=== PATIENT | female | born 1980 | race Caucasian/White ===

== ENCOUNTER 2018-01-04 21:20 | Observation (INO) | payer MEDICAID ==
[~2018-01-04] VITALS: Ht 170.2 cm; Wt 96.2 kg
[~2018-01-04 21:20] MED LIST: ACET-685 PO; CIPR500T86 PO; FLAV100T PO; TAMS0.4C2 PO; TRAM50TA PO
[2018-01-04 21:39] VITALS: BP 151/97
[2018-01-04] MEDS ORDERED: TORADOL IM STA (21:50)
--- NOTE | 2018-01-04 21:50 | ER.PDOC ---
General Chief Complaint: General Complaint Stated Complaint: POSS KIDNEY STONE Time seen by MD: 21:46 Source: patient, family Exam Limitations: no limitations History of Present Illness Initial Comments 37 year old white female with kidney stone comes in with left sided back pain. No fever, no chills. sudden in onset today two hours prior to consult. No nausea , no vomiting Timing/Duration: just prior to arrival Severity/Quality: moderate Location of Pain: flank pain (left) Sexual [place] History: less than 2 months ago, single partner Associated Symptoms: denies symptoms Prior symptoms/Treatment: Similar symptoms previous (history of kidney stone) Allergies: Coded Allergies: No Known Allergies (Unverified , 03/03/16) Past Medical History Medical History: hypertension, other (kidney stone) Surgical History: , tonsillectomy, tubal Social History Smoking: less than 1 pack/day Alcohol Use: none Drug Use: none Review of Systems Constitutional: no symptoms reported, see HPI EENTM: no symptoms reported Respiratory: no symptoms reported Cardiovascular: no symptoms reported Gastrointestinal: no symptoms reported Genitourinary: no symptoms reported Musculoskeletal: no symptoms reported Skin: no symptoms reported Psychiatric/Neurological: seizure Endocrine: no symptoms reported Hematologic/Lymphatic: no symptoms reported Physical Exam General Appearance: No Apparent Distress, WD/WN EENT: eyes nml inspection, nml ENT inspection, pharynx nml Neck: nml inspection, non-tender Cardiovascular/Respiratory: Regular Rate, Rhythm, No M/R/G, Normal Peripheral Pulses, No JVD, Normal Breath Sounds, No Respiratory Distress Abdomen: Normal Bowel Sounds, Non Tender, Soft, No Organomegaly, No Pulsatile Mass Back: nml inspection Pelvic: External Exam Normal Extremities: Normal Range of Motion, Non-Tender, Normal Inspection, No Pedal Edema, No Calf Tenderness, Normal Capillary Refill Neurologic/Psychiatric: field service tech II-XII NML as Tested, No Motor/Sensory Deficits, Alert, Normal Mood/Affect, Oriented x 3 Skin: Normal Color, Warm/Dry Lymphatic: No Adenopathy Results/Orders Results/Orders Laboratory Tests Test 01/04/18 00:00 01/04/18 21:57 Urine Collection Type UNKNOWN Urine Color YELLOW (YELLOW) Urine Appearance CLOUDY (CLEAR) Urine Bilirubin NEGATIVE MG/DL (NEGATIVE) Urine Ketones NEGATIVE (NEGATIVE) Urine Specific [place] 1.015 (1.005-1.035) Urine pH 6 (5.0-6.0) Urine Protein 15 mg/dL (NEGATIVE) Urine Urobilinogen NORMAL (NEGATIVE) Urine Nitrate NEGATIVE (NEGATIVE) Urine Leukocyte Esterase NEGATIVE (NEGATIVE) Urine Blood 150 3+ (NEGATIVE) Urine RBC 10-25 RBC/HPF (NONE SEEN) Urine WBC 0-2 WBC/HPF (0-2) Urine Squamous Epithelial Cells MODERATE #/HPF (FEW) Urine Bacteria MANY (NONE SEEN) Urine Hyaline Casts 0-1 (NONE SEEN) Urine Other 3+ MUCUS #/HPF Urine Glucose NORMAL (NEGATIVE) White Blood Count 9.7 10^3/uL (4.5-11.0) Red Blood Count 4.80 10^6/uL (4.00-5.20) Hemoglobin 13.7 g/dL (12.0-15.0) Hematocrit 41.1 % (36.0-46.0) Mean Corpuscular Volume 85.6 fL (78-100) Mean Corpuscular Hemoglobin 28.5 pg (26-34) Mean Corpuscular Hemoglobin Concent 33.3 g/dL (33-37) Red Cell Distribution Width 15.0 % (11.5-14.5) Platelet Count 258 10^3/uL (150-400) Mean Platelet Volume 9.2 fL (7.8-11.0) Neutrophils (%) (Auto) 53.9 % (41.0-85.0) Lymphocytes (%) (Auto) 33.1 % (24.0-44.0) Monocytes (%) (Auto) 9.9 % (5.0-12.0) Neutrophils # (Auto) 5.2 10^3/uL (1.8-7.7) Lymphocytes # (Auto) 3.2 10^3/uL (1.0-4.8) Monocytes # (Auto) 1.0 10^3/uL (0.3-0.8) Absolute Immature Granulocyte (auto 0.03 10^3 u/L (0-2) Eosinophils % 2.5 % (0.0-5.0) Basophils % 0.3 % (0.0-0.2) Basophils # 0.0 10^3/uL (0.0-0.1) Eosinophil Count 0.2 10^3/uL (0.0-0.2) Prothrombin Time 9.3 SEC (9.8-11.9) Prothrombin Time INR (Non-Therap) 0.9 Activated Partial Thromboplast Time 26.0 SEC (24.67-30.72) Sodium Level 137 mmol/L (132-145) Potassium Level 3.7 mmol/L (3.6-5.2) Chloride Level 104.0 mmol/L (96-109) Carbon Dioxide Level 23.7 mmol/L (20.0-32) Anion Gap 13.0 Blood Urea Nitrogen 13 mg/dL (7-18) Creatinine 1.05 mg/dL (0.59-1.40) Estimated GFR () 71.4 (>/=60) BUN/Creatinine Ratio 12.0 Glucose Level 101 mg/dL (70-110) Calcium Level 8.9 mg/dL (8.4-10.5) Total Bilirubin 0.1 mg/dL (0.2-1.0) Aspartate Amino Transf (AST/SGOT) 111 U/L (0-35) Alanine Aminotransferase (ALT/SGPT) 115 U/L (12-78) Alkaline Phosphatase 326 U/L (50-136) Total Protein 7.1 g/dL (6.4-8.2) Albumin 3.1 g/dL (3.4-5.0) Globulin 4.0 Percent Immature Gran (Cell Imm) 0.30 % (0.00-0.50) Administered Medications Medications (Trade) Dose Ordered Sig/Dank Route PRN Reason Start Time Stop Time Status Last Admin Dose Admin Ketorolac Tromethamine (Toradol) 30 mg STAT STAT IM 01/04/18 21:50 01/04/18 21:53 DC 01/04/18 21:58 Progress Progress Pain under good control Departure Time of Disposition: 23:14 Disposition: 09 ADMITTED INPATIENT Impression: Primary Impression: Calculus of ureter Condition: Stable Referrals: HONG SOTO DO (PCP) PRIMARY CARE PROVIDER Additional Instructions: admit to Dr. Carter Comments admit Duration or Time Spent with Pa: ASHLEIGH HILLMAN MD January 04, 2018 21:50
[2018-01-04] MEDS ORDERED: TORADOL ONE (21:55)
[2018-01-04 22:02] LABS: BASOPHIL % 0.3 % (0.0-0.2); EOSINOPHIL # 0.2 10^3/uL (0.0-0.2); EOSINOPHIL % 2.5 % (0.0-5.0); HEMOGLOBIN 13.7 g/dL (12.0-15.0); LYMPHOCYTES # 3.2 10^3/uL (1.0-4.8); LYMPHOCYTES % 33.1 % (24.0-44.0); MEAN CELL HGB 28.5 pg (26-34); MEAN CELL HGB CONCENTRATION 33.3 g/dL (33-37); MEAN CORP VOLUME 85.6 fL (78-100); MEAN PLATELET VOLUME 9.2 fL (7.8-11.0); MONOCYTES % 9.9 % (5.0-12.0); NEUTROPHIL # 5.2 10^3/uL (1.8-7.7); NEUTROPHILS % 53.9 % (41.0-85.0); WHITE BLOOD CELL 9.7 10^3/uL (4.5-11.0)
[2018-01-04 22:18] LABS: CALCIUM 8.9 mg/dL (8.4-10.5); CARBON DIOXIDE 23.7 mmol/L (20.0-32)
[2018-01-04 22:31] LABS: BILIRUBIN,URINE NEGATIVE (NEGATIVE); UROBILINOGEN,URINE NORMAL (NEGATIVE)
[2018-01-04 22:42] LABS: APPEARANCE,URINE CLOUDY (CLEAR); UA COLOR YELLOW (YELLOW)
--- NOTE | 2018-01-04 22:48 | DIREP ---
PROCEDURE:CT ABDOMEN/PELVIS W/O CONTRAST COMPARISON:[facility], CT, CT ABD/PELVIS W/O, 11/28/2016, 09:22 PM. INDICATIONS:kidney stone TECHNIQUE:Axial images were created through the abdomen and pelvis without intravenous contrast material. No oral contrast was administered. Sagittal and coronal reconstructions were performed from source images. FINDINGS: LUNG BASES:Normal. No visible pulmonary or pleural disease. LIVER:Normal. No significant liver lesions are identified. BILIARY:Normal. No visible dilatation or calcification. PANCREAS:Normal. No lesion, fluid collection, ductal dilatation, or atrophy. SPLEEN:Normal. No enlargement or focal lesion. ADRENALS:Normal. No mass or enlargement. URINARY TRACT:Large 6 x 5 mm right UPJ stone resulting in mild hydronephrosis. Otherwise numerous smaller bilateral renal calculi are seen. AORTA/VASCULAR:Normal. No aneurysm. RETROPERITONEUM:Normal. No mass or adenopathy. BOWEL/MESENTERY:Normal. There is no intestinal obstruction, free fluid, free air or mesenteric inflammatory changes. Normal appendix. ABDOMINAL WALL:Normal. No mass or hernia. PELVIC ORGANS:Normal. No visible mass. Pelvic organs appropriate for patient age. BONES:Normal for age. No bony lesion or acute fracture. OTHER:Negative. CONCLUSION: 1. Large right UPJ stone resulting in mild hydronephrosis. Dictated by: Dwight Miller M.D. on 01/04/2018 at 10:37 PM
[2018-01-04] MEDS ORDERED: MORPHINE SULFATE IV PRN (23:30)
[2018-01-04] MEDS: NS 1000ML 1,000 ML SCH (23:30)
[2018-01-04] MEDS ORDERED: ZOFRAN IV PRN (23:30)
[2018-01-04] MEDS ORDERED: PHEN100C PO (23:40)
[2018-01-04] MEDS ORDERED: LOSA50TA6 PO (23:40)
[2018-01-04] MEDS ORDERED: SULF1TAB24 PO (23:40)
[2018-01-05] VITALS (7 sets, daily range): BP systolic 101–140; BP diastolic 60–92
[2018-01-05] MEDS ORDERED: NS 1000ML 1,000 ML ONE (00:04)
--- NOTE | 2018-01-05 00:20 | NUR ---
ARRIVED TO ROOM 306 VIA WC PATIENT WAS ABLE TO AMBULATE TO BED WITHOUT ASSIST. RECEIVED REPORT ASSUMED CARE OF PATIENT. PATIENT ORIENTED TO ROOM CALL LIGHT IN REACH. BED LOW LOCKED AND SIDE RAILS UP X2. INSTRUCTED ON NPO STATUS DUE TO POSSIBLE PROCEDURE. PATIENT VOICES UNDERSTANDING.
--- NOTE | 2018-01-05 04:19 | NUR ---
PATIENT RESTING IN BED RESPIRATIONS EVEN AND UNLABORED EASY TO AROUSE TO VOICE. OBTAINED VITAL SIGNS. PATIENT DENIES PAIN.
--- NOTE | 2018-01-05 06:36 | NUR ---
REPORT GIVEN TO YESENIA MANCILLA RELINQUISHED CARE.
[2018-01-05] MEDS ORDERED: DILANTIN PO ONE (09:09)
[2018-01-05] MEDS: NS 1000ML 1,000 ML SCH (09:12)
--- NOTE | 2018-01-05 10:15 | NUR ---
DISCHARGE PLAN CM VISITED WITH PATIENT REGARDING DISCHARGE PLAN AND NEEDS. PATIENT LIVES AT HOME WITH HER FIANCE AND IS INDEPENDENT WITH ADL'S. PATIENT DENIES NEED FOR ANY DME, O2, OR HOME HEALTH AT THIS TIME. DISCHARGE GOAL IS TO DISCHARGE HOME WITH HER FIANCE. CM DEPT WILL CONTINUE TO MONITOR DISCHARGE NEEDS.
[2018-01-05] MEDS ORDERED: LEVAQUIN 100 ML IV ONE (10:34)
[2018-01-05] MEDS ORDERED: SUBLIMAZE ONE (11:45)
[2018-01-05] MEDS ORDERED: TRAM50TA PO (11:51)
[2018-01-05] MEDS ORDERED: CIPR500T86 PO (11:51)
[2018-01-05] MEDS ORDERED: SUBLIMAZE IV PRN (12:00)
[2018-01-05] MEDS ORDERED: BENADRYL IV PRN (12:00)
[2018-01-05] MEDS ORDERED: LACTATED RINGERS 1,000 ML IV SCH (12:00)
[2018-01-05] MEDS ORDERED: ZOFRAN IV PRN (12:00)
[2018-01-05] MEDS ORDERED: NORCO 7.5MG PO PRN (12:00)
[2018-01-05] MEDS ORDERED: PHENERGAN IV PRN (12:00)
[2018-01-05] MEDS ORDERED: ATIVAN IV PRN (12:00)
--- NOTE | 2018-01-05 12:55 | OPH ---
DATE OF SURGERY: 01/05/2018 PREOPERATIVE DIAGNOSIS: Calculus, right ureteropelvic junction. FINAL DIAGNOSIS: Calculus, right ureteropelvic junction. PROCEDURES: Cystoscopy, right retrograde with a stent insertion. DESCRIPTION OF PROCEDURE: The patient was brought to the cystoscopy room, was put in supine position in the cystoscopy table. After the patient was given a satisfactory and adequate general anesthesia, the patient was placed in the lithotomy position. The genitalia was then prepped and draped aseptically in the usual manner. First, a 22-Japanese cystoscope was inserted per urethra up to the bladder and with the use of the right angle lens, the bladder was inspected. There was no evidence of tumor, no calculi, no ulcerations seen. Retrograde ureteropyelogram was initially done by inserting a ureteral catheter in the right orifice and injected with an isovue dye and after this was done, the right ureteral stent was then inserted. The stone in the UP junction ight have moved up to the right kidney. After this, procedure was terminated, the bladder was emptied with fluid. Instrument was removed. The patient was then awakened, was transferred to the recovery room in stable condition. Blair Carter MD DR: JAYME/olga JOB# [id number] JOMAR
[2018-01-05] MEDS ORDERED: COZAAR ONE (13:03)
--- NOTE | 2018-01-05 14:03 | NUR ---
discharge PT DISCHARGED HOME AND TO FOLLOW UP WITH DR ALDANA IN 1WEEK. DENIES PAIN OR FURTHER NEEDS AT THIS TIME. PT LEFT AMBULATORY TO PRIVATE AUTO WITH SPOUSE.
[2018-01-05] MEDS ORDERED: DILANTIN PO SCH (15:00)
--- NOTE | 2018-01-05 17:58 | DIREP ---
PROCEDURE:XRAY UROGRAPHY RETROGRADE COMPARISON:[facility], , XRAY UROGRAPHY RETROGRADE, 08/24/2016, 09:56 AM. INDICATIONS:RT UTEREAL STONE W/STINT INSERTION, 12 IMAGES, 103.5 SEC FLUORO, 44.1 mGy TECHNIQUE:10 intraoperative spot films of the abdomen were obtained. FINDINGS:Imaging documents initial opacification of the right renal collecting system subsequent right double pigtail ureteral stent placement. Total fluoroscopy time 103.5 seconds. CONCLUSION:Intraoperative spot films. Dictated by: Dwight Miller M.D. on 01/05/2018 at 05:54 PM
[2018-01-06] MEDS ORDERED: COZAAR PO SCH (09:00)
== END 2018-01-05 14:00 | disposition home or self-care (01) ==
LOC: ER 21:20 → MS 23:37
PROVIDERS: ADMIT Urology; ATTEND Urology
DX: N20.2 Calculus of kidney with calculus of ureter (principal); I10 Essential (primary) hypertension; F17.210 Nicotine dependence, cigarettes, uncomplicated
CPT/HCPCS: 36415; 52332; 74176; 74420; 76000; 80053; 81000; 81025; 85025; 85610; 85730; 87086; 96372; 99285; G0378 ×14; J1885; J1956; J7030 ×2; J7120; Q9967; J3010; C1758; C2617

== ENCOUNTER 2018-01-16 01:57 | Day surgery (SDC) | payer MEDICAID ==
[~2018-01-16] VITALS: Ht 170.2 cm; Wt 93.4 kg
[2018-01-16] VITALS (10 sets, daily range): BP systolic 116–142; BP diastolic 72–88
[~2018-01-16 01:57] MED LIST changes: +LOSA50TA6 PO; +PHEN100C PO; +SULF1TAB24 PO
[2018-01-16] MEDS ORDERED: LEVAQUIN 100 ML IV ONE (05:25)
[2018-01-16] MEDS ORDERED: LACTATED RINGERS 1,000 ML ONE ×3 (05:25→08:57)
[2018-01-16] MEDS ORDERED: ZOFRAN ONE (06:50)
[2018-01-16] MEDS ORDERED: DECADRON ONE (06:50)
[2018-01-16] MEDS ORDERED: DIPRIVAN IV ONE (06:51)
[2018-01-16] MEDS ORDERED: TORADOL ONE (06:51)
[2018-01-16] MEDS ORDERED: VERSED ONE (06:51)
[2018-01-16] MEDS ORDERED: SUBLIMAZE ONE (06:51)
[2018-01-16] MEDS ORDERED: LEVE500T8 PO (07:25)
[2018-01-16] MEDS ORDERED: TYLENOL PO ONE ×2 (07:30→07:41)
[2018-01-16] MEDS ORDERED: SODIUM CHLORIDE IR ONE (07:37)
[2018-01-16] MEDS ORDERED: NS 3000ML IRR IR ONE (07:37)
[2018-01-16] MEDS ORDERED: LACTATED RINGERS 1,000 ML IV SCH ×2 (07:41→09:00)
--- NOTE | 2018-01-16 08:27 | PCM.EKG ---
[facility] Test Date: 2018-01-16 Test Time: 07:33:08 Pat Name: SHANNAN GALLEGO Department: Room: Gender: F Manager Business Continuity: : 1980 Requested By: BREANNA ALDANA Order Number: [id number] Reading MD: Arie Rivera Measurements Intervals [place] Rate: 69 P: 69 DC: 188 QRS: 17 QRSD: 104 T: 32 QT: 430 QTc: 460 Interpretive Statements Normal sinus rhythm Normal ECG No previous ECG available for comparison Electronically Signed On 01-16-2018 13:13:42 CDT by Arie Rivera Please click the below link to view image of tracing.
[2018-01-16] MEDS ORDERED: SUBLIMAZE IV PRN (09:00)
[2018-01-16] MEDS ORDERED: BENADRYL IV PRN (09:00)
[2018-01-16] MEDS ORDERED: NORCO 7.5MG PO PRN (09:00)
[2018-01-16] MEDS ORDERED: PHENERGAN IV PRN (09:00)
[2018-01-16] MEDS ORDERED: ZOFRAN IV PRN (09:00)
[2018-01-16] MEDS ORDERED: ATIVAN IV PRN (09:00)
--- NOTE | 2018-01-16 09:39 | OPH ---
DATE OF SURGERY: 01/16/2018 PREOPERATIVE DIAGNOSIS: Calculus, right upper ureter. FINAL DIAGNOSIS: Calculus moved up to the right kidney. PROCEDURES: Cystoscopy, removal of right ureteral stent, ureteroscopy with retrograde and attempted stone extraction and reinsertion of double-J ureteral stent. DESCRIPTION OF PROCEDURE: The patient was brought to the cystoscopy room and was put in supine position on the cystoscopy table. After the patient was given an adequate and satisfactory LMA general anesthesia, the patient was placed in the lithotomy position. The genitalia was then prepped and draped aseptically in the usual manner. First, the 23-Honduran cystoscope was entered per urethra up to the bladder and with the use of the right angle lens, the bladder was visualized and the right ureteral catheter was removed and replaced with a guidewire. After that, the cystoscope was removed and a 7-Honduran semirigid ureteroscope was inserted from the bladder from the right orifice all the way to the ureter and the stone, which was initially in the upper ureter was attempted to remove it; however, the stone moved up to the right kidney, so a retrograde was done and it showed the stone to move up to the right kidney, so the instrument ureteroscope was removed and a double J right ureteral stent was then reinserted from the right orifice all the way to the kidney through the guidewire and then after that the guidewire was removed. KUB revealed the stent to be in the proper location in the right renal pelvis and the terminal portion was in the bladder area. After this, the cystoscope was reinserted to the bladder and the fluid was emptied from the bladder. Instrument was then removed. Procedure was terminated. The patient was then awakened, was transferred to the recovery room in stable condition. Blair Carter MD DR: JAYME/olga JOB# [id number]
[2018-01-16] MEDS ORDERED: NORCO 7.5MG PO ONE (10:10)
--- NOTE | 2018-01-16 12:20 | DIREP ---
PROCEDURE:XRAY UROGRAPHY RETROGRADE COMPARISON:[facility], CR, XRAY UROGRAPHY RETROGRADE, 01/05/2018, 09:11 AM. [facility], CR, XRAY UROGRAPHY RETROGRADE, 08/24/2016, 09:56 AM. INDICATIONS:RT UTEREAL STONE, RETRO,13 IMAGES,10CC ISOVUE USED,191.4 SECONDS, 62.57 mGy TECHNIQUE:Fluoroscopic intraoperative guiding FINDINGS: Fluoro time 191.4 seconds Images 12 10 cc Isovue Initial image demonstrated a nephroureteral stent, subsequent images demonstrate wire cannulation, removal, retrograde wire placement, persistent dilated right intrarenal collecting system and subsequent right nephroureteral stent re-placement. CONCLUSION: 1. Fluoroscopic images for right nephroureteral stent exchange. Dictated by: Mariah Bal MD on 01/16/2018 at 12:15 PM
== END 2018-01-16 10:27 | disposition home or self-care (01) | DRG 694 ==
LOC: SURG 01:57
PROVIDERS: ATTEND Urology
DX: N20.2 Calculus of kidney with calculus of ureter (principal); I10 Essential (primary) hypertension; E66.9 Obesity, unspecified; Z79.899 Other long term (current) drug therapy; Z68.32 Body mass index [BMI] 32.0-32.9, adult; Z98.890 Other specified postprocedural states; F17.210 Nicotine dependence, cigarettes, uncomplicated
CPT/HCPCS: 52332; 52352; 74420; 76000; 93005; J1100; J1885; J1956; J2250; J2405; J3010; J3490; J7030 ×2; J7120 ×2; Q9967; C1758; C1769; C1894; C2617

== ENCOUNTER 2018-01-22 20:11 | Observation (INO) | payer MEDICAID ==
[~2018-01-22] VITALS: Ht 170.2 cm; Wt 93.5 kg
[~2018-01-22 20:11] MED LIST changes: +LEVE500T8 PO
[2018-01-22] MEDS ORDERED: ATIVAN PO STA (20:14)
[2018-01-22 20:18] VITALS: BP 141/89
--- NOTE | 2018-01-22 20:22 | ER.PDOC ---
General Chief Complaint: Seizure Stated Complaint: SEIZURES Time seen by MD: 20:11 Source: patient, family Exam Limitations: other (POST ICTAL) History of Present Illness Timing/Onset/Duration: Multiple Episodes Post-ictal Symptoms: confusion Prior symptoms/Treatment: Similar symptoms previous Allergies: Coded Allergies: famotidine (Verified Allergy, Intermediate, ANXIETY & BEHAVIORAL CHANGES, 01/16/18) Home Meds Active Scripts Tramadol Hcl (TRAMADOL HCL) 50 Mg Tablet, 50 MG PO Q6 PRN for PAIN, #20 TABLET Prov:BREANNA ALDANA MD 01/05/18 Ciprofloxacin Hcl (CIPRO) 500 Mg Tablet, 500 MG PO BID, #20 Prov:BREANNA ALDANA MD 01/05/18 Reported Medications Levetiracetam (LEVETIRACETAM) 500 Mg Tablet, 1 TAB PO BID, #180 TAB 3 Refills 01/16/18 Losartan Potassium (LOSARTAN POTASSIUM) 50 Mg Tablet, 1 TAB PO DAILY, #30 TAB 5 Refills 01/04/18 Phenytoin Sodium Extended (DILANTIN) 100 Mg Capsule, 2 CAP PO TID, #90 CAP 3 Refills 01/04/18 Past Medical History Medical History: hypertension, other Surgical History: , tonsillectomy, tubal LMP (females 10-50): this week Social History Smoking: less than 1 pack/day Alcohol Use: none Drug Use: none Reviewed Nursing Reviewed: Vital Signs, Abn. Noted Constitutional: weakness All Other Systems: Reviewed and Negative Physical Exam General Appearance: lethargic EENT: nml eye inspection, PERRL, no nystagmus, nml ENT inspection, no apparent , pharynx nml, no CSF leak Neck/Back: neck supple, non-tender Respiratory: no resp distress, breath sounds nml, no evidence of rib injury CVS: reg rate & rhythm, heart sounds nml Abdomen: non-tender, no organomegaly, no distention Skin: color nml, no rash, warm/dry Extremities: non-tender, nml ROM, no pedal edema Observed Seizure Activity: generalized Cerebellar: nml tested, nml Romberg Sensorimotor: no motor deficit, no sensory deficit, reflexes nml Departure Time of Disposition: 21:00 Disposition: 01 HOME, SELF-CARE Impression: Primary Impression: Epilepsy Condition: Improved Referrals: BUBLIS,HONG A DO (PCP) PRIMARY CARE PROVIDER Duration or Time Spent with Pa: 2 HRS NICOLA HURD MD Jan 22, 2018 20:22
[2018-01-22 20:24] LABS: HEMOGLOBIN 13.4 g/dL (12.0-15.0); MEAN CELL HGB 29.1 pg (26-34); MEAN CELL HGB CONCENTRATION 33.8 g/dL (33-37); MEAN CORP VOLUME 86.3 fL (78-100); MEAN PLATELET VOLUME 9.2 fL (7.8-11.0); RED CELL DISTRIBUTION WIDTH 14.9 % (11.5-14.5); WHITE BLOOD CELL 9.5 10^3/uL (4.5-11.0)
[2018-01-22] MEDS ORDERED: ATIVAN ONE (20:38)
[2018-01-22 20:40] LABS: CALCIUM 8.9 mg/dL (8.4-10.5); CARBON DIOXIDE 25.6 mmol/L (20.0-32); DILANTIN 11.6 ug/mL (10.0-20.0)
--- NOTE | 2018-01-22 22:10 | NUR ---
DR. HUNG: EDP SPOKE WITH DR. HUNG CONCERNING ADMIT. DR. HUNG ADMIT UNDER HIS CARE. ADMIT REQUEST PUT IN.
[2018-01-22] MEDS ORDERED: ATIVAN IV PRN (22:30)
[2018-01-23 04:50] VITALS: BP 116/79
[2018-01-23] MEDS ORDERED: ULTRAM PO PRN (06:00)
--- NOTE | 2018-01-23 07:07 | NUR ---
REPORT REPORT RECEIVED FROM CAUSTIC MIXER
[2018-01-23] MEDS ORDERED: DILANTIN PO SCH ×2 (08:00→21:00)
[2018-01-23] MEDS: KEPPRA PO SCH ×2 (08:56→20:33)
[2018-01-23] MEDS: MACROBID PO SCH ×2 (08:57→20:33)
[2018-01-23] MEDS: COZAAR PO SCH (09:00)
[2018-01-23 09:15] VITALS: BP 132/84
--- NOTE | 2018-01-23 09:45 | NUR ---
SEIZURE PT WAS NOTICED TO BE HAVING SEIZURE ACTIVITY FOR APPROX 3 MINUTES. PT APPEARED TO BE POSTICTAL STAGE AT THIS TIME. PT IS A/O X3 BUT HAS DOUBLE VISION AND IS MODERATELY LETHARGIC. PT HAS BEEN MOVED TO 328 FOR CLOSER OBSERVATION. PT STATES SYMPTOMS ARE SLOWLY RESIDING AT THIS TIME. WILL CONT TO MONITOR PT CALL LIGHT IN REACH
[2018-01-23 10:28] VITALS: BP 133/81
--- NOTE | 2018-01-23 10:45 | NUR ---
DISCHARGE PLAN CM VISITED WITH PATIENT REGARDING DISCHARGE PLAN AND NEEDS. PATIENT LIVES AT HOME WITH HER FIANCE. SHE IS ACTIVE AND INDEPENDENT WITH ADL'S. SHE DOES NOT REQUIRE ANY DME, HOME OXYGEN, OR HOME HEALTH AT THIS TIME. DISCHARGE GOAL IS TO DISCHARGE HOME WITH ROUTINE SELF CARE. CM DEPT WILL CONTINUE TO MONITOR DISCHARGE NEEDS.
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
[2018-01-23] MEDS ORDERED: DILANTIN IV SCH (14:00)
[2018-01-23 14:43] VITALS: BP 134/99
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
--- NOTE | 2018-01-23 16:19 | NUR ---
PT OFF OF FLOOR WITH VIA WHEELCHAIR PT UNDERSTANDS THE RISK INVOLVED LEAVING THE FLOOR. PT WAS TOLD THE PT MUST COME BACK UP WITHIN 15 MINUTES. PT UNDERSTANDS THE RISK OF LEAVING THE FLOOR.
--- NOTE | 2018-01-23 16:37 | NUR ---
PT BACK ONTO FLOOR AT THIS TIME.
--- NOTE | 2018-01-23 18:34 | NUR ---
REPORT REPORT GIVEN TO ONCOMING SHIFT
[2018-01-23 19:38] VITALS: BP 127/88
--- NOTE | 2018-01-23 21:30 | NUR ---
pt off unit via w/c accompanied by , pt warned that it is not safe for her to leave because of seizures
--- NOTE | 2018-01-23 21:46 | NUR ---
pt returned to unit via w/c accompanied by ashley
--- NOTE | 2018-01-23 22:38 | NUR ---
pt off unit via w/c accompanied by , warned that it is not safe to leave unit d/t seizures
--- NOTE | 2018-01-23 22:58 | NUR ---
to returned to unit via w/c accompanied by ashley
[2018-01-23 23:54] VITALS: BP 134/87
--- NOTE | 2018-01-24 01:53 | HPH ---
ADMIT DATE: 01/23/2018 ADMISSION HISTORY AND PHYSICAL CHIEF COMPLAINT: Seizures. HISTORY OF PRESENT ILLNESS: The patient is a 37-year-old woman with past medical history significant for seizure disorder, hypertension. She also had a recent urologic procedure and was on oral antibiotics. She denies any fever or chills. She did have a breakthrough seizure and presented to the ER. She is on Keppra and Dilantin for seizure disorder. In the ER, Neurology was consulted over the phone and they did state they would increase her Keppra and stop the ciprofloxacin. No other acute changes. PAST MEDICAL HISTORY: Includes hypertension, seizure disorder, tobacco abuse. PAST SURGICAL HISTORY: She has had C-sections x 2, numerous lithotripsies, cystoscopies, tonsillectomy and tubal ligation. ALLERGIES: No known drug allergies. HOME MEDICATIONS: List includes: She is on ciprofloxacin 500 mg b.i.d., Keppra 500 mg b.i.d., losartan 50 mg daily, Dilantin 200 mg 3 times a day and tramadol p.r.n. for pain. SOCIAL HISTORY: Does have a history of tobacco use. Denies illicit drug use or alcohol use. FAMILY HISTORY: Negative for early coronary artery disease or diabetes. REVIEW OF SYSTEMS: CARDIAC: Denies chest pain, shortness of breath, dyspnea on exertion. PULMONARY: No cough, sputum production or pleuritic chest pain. GASTROINTESTINAL: No nausea, vomiting, diarrhea or constipation. All else negative in 10 point review of system except as in HPI. PHYSICAL EXAMINATION: VITAL SIGNS: Upon arrival to the ER, height 170.2 cm, weight 93.5 kilograms, temperature 98.2, pulse 82, respirations 18, blood pressure 141/89, O2 saturation 93% on room air. GENERAL: She is alert, in no acute distress at time of exam. HEENT: Pupils equal, round, reactive to light. Sclerae are anicteric. Oropharynx is clear. Mucous membranes are moist. NECK: Supple, no lymphadenopathy. CARDIOVASCULAR: At time of exam is regular rate and rhythm. LUNGS: Clear bilaterally. ABDOMEN: Soft. Bowel sounds are present. EXTREMITIES: No cyanosis, clubbing or significant edema. NEUROLOGIC: AT the time of exam is grossly nonfocal. LABORATORY DATA: CBC: White count 9.5, hemoglobin 13.4, platelets 260. Sodium 141, potassium 3.2, chloride 107, CO2 is 25, BUN 14, creatinine 0.85, glucose is 101, calcium is 8.9, total bilirubin 0.2, AST 51, ALT is 104, alkaline phosphatase is 289, total protein 6.8, albumin 3.1. Serum hCG is negative. Dilantin level is borderline therapeutic at 11.6. ASSESSMENT AND PLAN: This patient is a 37-year-old woman here with ureteral stent placed on ciprofloxacin with breakthrough seizure, history of hypertension. 1. We will follow Neurology recommendations, increase Keppra to 1 gram b.i.d. We will check a Dilantin level and for now, we will give IV Dilantin, while in hospital. 2. Stop the ciprofloxacin and start on Macrodantin. 3. Appropriate p.r.n. pain and nausea medication. 4. Ambulate as tolerated. Time spent on 01/23/2018 is 45 minutes. This plan was discussed with the patient. She is her own decision maker. She does understand and concur with plans. Elieser Gimenez MD DR: JANIA/olga JOB# [id number] JOMAR
[2018-01-24 05:05] LABS: BASOPHIL # 0.1 10^3/uL (0.0-0.1); BASOPHIL % 0.6 % (0.0-0.2); EOSINOPHIL # 0.6 10^3/uL (0.0-0.2); EOSINOPHIL % 5.4 % (0.0-5.0); LYMPHOCYTES # 3.4 10^3/uL (1.0-4.8); LYMPHOCYTES % 30.9 % (24.0-44.0); MEAN CELL HGB 28.7 pg (26-34); MEAN CELL HGB CONCENTRATION 32.7 g/dL (33-37); MEAN CORP VOLUME 87.9 fL (78-100); MEAN PLATELET VOLUME 9.4 fL (7.8-11.0); MONOCYTES # 1.1 10^3/uL (0.3-0.8); MONOCYTES % 9.7 % (5.0-12.0); NEUTROPHIL # 5.8 10^3/uL (1.8-7.7); NEUTROPHILS % 53.2 % (41.0-85.0); WHITE BLOOD CELL 10.9 10^3/uL (4.5-11.0)
[2018-01-24 05:10] LABS: CARBON DIOXIDE 27.7 mmol/L (20.0-32)
[2018-01-24 05:11] LABS: CALCIUM 8.6 mg/dL (8.4-10.5); DILANTIN 12.1 ug/mL (10.0-20.0)
[2018-01-24 05:40] VITALS: BP 128/82
--- NOTE | 2018-01-24 06:43 | NUR ---
REPORT TO VAMSHI MANCILLA
[2018-01-24] MEDS ORDERED: DILANTIN PO SCH ×3 (08:00→13:00)
[2018-01-24] MEDS: KEPPRA PO SCH (08:02)
[2018-01-24 08:03] VITALS: BP 127/89
[2018-01-24] MEDS: MACROBID PO SCH (09:44)
[2018-01-24] MEDS: COZAAR PO SCH (09:44)
[2018-01-24 12:33] VITALS: BP 132/75
--- NOTE | 2018-01-24 15:25 | DSH ---
DATE OF DISCHARGE: 01/24/2018 ADMITTING DIAGNOSES: Seizure with underlying seizure disorder. DISCHARGE DIAGNOSIS: Seizure disorder. HOSPITAL COURSE: As follows: The patient is a 37-year-old female who does have underlying seizures. Her primary care physician increased her Keppra to 1000 mg. She only took one dose and started to have a seizure. She was brought to the ER. Her vital signs were stable and we put her upstairs. She did have another seizure on the floor, but we continue the Keppra at 1000 mg twice a day with her Dilantin 3 times a day. She has been seizure free overnight. She feels fine and is tolerating p.o. intake. At this time, she is stable. I am going to discharge her. Again, I have told her to continue taking the Keppra 1000 mg twice a day with her Dilantin and followup with her PCP, Dr. Neil as scheduled. Resume home diet and activity level and then go from there. She is being referred to a neurologist through her primary care physician's office. Rebekah Dowd MD DR: GENET/olga JOB# [id number]
[2018-01-24 17:15] VITALS: BP 132/75
--- NOTE | 2018-01-24 17:15 | NUR ---
DISCHARGE PT DISCARDED AT THIS TIME. PT EDUCATION GIVEN. PT UNDERSTANDS ALL DC INSTRUCTIONS. PT DENIES ANY FURTHER QUESTIONS AT THIS TIME. PT LEAVES FLOOR VIA WHEELCHAIR TO PRIVATE VEHICLE.
[2018-01-26] MEDS ORDERED: TAMS0.4C2 PO (09:11)
[2018-01-26] MEDS ORDERED: ACET-685 PO (09:11)
[2018-01-26] MEDS ORDERED: NITR100C58 PO (09:11)
== END 2018-01-24 17:15 | disposition home or self-care (01) ==
LOC: ER 20:11 → MS 22:19 → EDBEDREQ 22:28 → MS 01-23 13:48
PROVIDERS: ADMIT Internal Medicine; ATTEND Internal Medicine
DX: G40.909 Epilepsy, unspecified, not intractable, without status epilepticus (principal); F17.210 Nicotine dependence, cigarettes, uncomplicated; I10 Essential (primary) hypertension; Z88.8 Allergy status to other drugs, medicaments and biological substances; Z79.899 Other long term (current) drug therapy
CPT/HCPCS: 36415 ×2; 80048; 80053; 80177; 80185 ×2; 82550; 84703; 85025; 85027; 96374; 99285; G0378 ×43; G0481; J2060

== ENCOUNTER 2018-01-26 03:25 | Day surgery (SDC) | payer MEDICAID ==
[~2018-01-26] VITALS: Ht 170.2 cm; Wt 93.4 kg
[2018-01-26] VITALS (9 sets, daily range): BP systolic 111–141; BP diastolic 74–92
[2018-01-26] MEDS ORDERED: LACTATED RINGERS 1,000 ML IV SCH ×3 (05:33→09:30)
[2018-01-26] MEDS ORDERED: TORADOL ONE (06:34)
[2018-01-26] MEDS ORDERED: DECADRON ONE (06:34)
[2018-01-26] MEDS ORDERED: VERSED ONE (06:34)
[2018-01-26] MEDS ORDERED: ZOFRAN ONE (06:34)
[2018-01-26] MEDS ORDERED: LIDOCAINE 2% VIAL ONE (06:35)
[2018-01-26] MEDS ORDERED: DIPRIVAN IV ONE (06:35)
[2018-01-26] MEDS ORDERED: SUBLIMAZE ONE (06:35)
[2018-01-26] MEDS ORDERED: PHENERGAN IV PRN (07:30)
[2018-01-26] MEDS ORDERED: BENADRYL IV PRN (07:30)
[2018-01-26] MEDS ORDERED: SUBLIMAZE IV PRN (07:30)
[2018-01-26] MEDS ORDERED: ZOFRAN IV PRN (07:30)
[2018-01-26] MEDS ORDERED: VENTOLIN IH PRN (07:30)
--- NOTE | 2018-01-26 07:34 | DIREP ---
PROCEDURE:XRAY ABDOMEN SINGLE VW COMPARISON:[facility], CR, XRAY UROGRAPHY RETROGRADE, 01/16/2018, 06:13 AM. INDICATIONS:for stent position PRE ESWL FINDINGS: BOWEL GAS PATTERN:Normal. CALCIFICATIONS:Pericatheter stone not identified. LUNG BASES:Clear. BONES:Normal. OTHER:Stable right double pigtail ureteral stent with the proximal loop formed at level of L2 and the distal loop formed overlying the inferior midline urinary bladder. CONCLUSION:Stable right double pigtail ureteral stent. Dictated by: Day Gomez MD on 01/26/2018 at 07:29 AM
[2018-01-26] MEDS ORDERED: ATIVAN IV PRN ×2 (08:30)
[2018-01-26] MEDS ORDERED: TAMS0.4C2 PO (09:11)
[2018-01-26] MEDS ORDERED: NITR100C58 PO (09:11)
[2018-01-26] MEDS ORDERED: ACET-685 PO (09:11)
[2018-01-26] MEDS ORDERED: NORCO 7.5MG PO PRN (09:30)
[2018-01-26] MEDS ORDERED: LASIX IV SCH (09:30)
--- NOTE | 2018-01-26 11:58 | OPH ---
DATE OF SURGERY: 01/26/2018 PREOPERATIVE DIAGNOSIS: Right renal calculus with an indwelling ureteral stent. FINAL DIAGNOSIS: Right renal calculus with an indwelling ureteral stent. PROCEDURES: Right ESWL. DESCRIPTION OF PROCEDURE: The patient was brought to the lithotripsy room and was put in supine position on lithotripsy table. A right preop renal ultrasound was initially performed which revealed a large stone in the lower pole of the right kidney measuring 7.5 mm in diameter. This stone was previously in the right upper ureter, which moved up to the right kidney. There was no evidence of hydronephrosis, no cysts or masses noted. After the patient was given an LMA general anesthesia and after localization of the stone with the use of an ultrasound and a C-arm fluoroscopy, a right ESWL was then performed using a Dornier Compact Delta II Lithotripter. A total of 2500 shockwaves were delivered to the stones in the right kidney under ultrasound guidance. After fragmentation of the stone as noted in the ultrasound, the procedure was terminated. The patient was awakened and was transferred to the recovery room in stable condition. Blair Carter MD DR: [email or web address]/olga JOB# [id number]
== END 2018-01-26 10:45 | disposition home or self-care (01) | DRG 694 ==
LOC: SURG 03:25
PROVIDERS: ATTEND Urology
DX: N20.0 Calculus of kidney (principal); E66.9 Obesity, unspecified; I10 Essential (primary) hypertension; Z88.8 Allergy status to other drugs, medicaments and biological substances; Z79.899 Other long term (current) drug therapy; Z98.51 Tubal ligation status; F17.210 Nicotine dependence, cigarettes, uncomplicated; Z68.32 Body mass index [BMI] 32.0-32.9, adult; Z98.890 Other specified postprocedural states
CPT/HCPCS: 50590; 74018; J1100; J1885; J2001; J2250; J2405; J3010; J3490

== ENCOUNTER 2018-01-29 07:03 | Observation (INO) | payer MEDICAID ==
[~2018-01-29] VITALS: Ht 170.2 cm; Wt 93.4 kg
[~2018-01-29 07:03] MED LIST changes: +NITR100C58 PO
[2018-01-29 07:11] VITALS: BP 139/94
[2018-01-29 08:34] VITALS: BP 126/86
[2018-01-29 08:49] VITALS: BP 118/78
[2018-01-29] MEDS ORDERED: LACTATED RINGERS 1,000 ML IV SCH (09:00)
[2018-01-29] MEDS ORDERED: NORCO 7.5MG PO PRN (09:00)
[2018-01-29 09:04] VITALS: BP 124/76
[2018-01-29 09:19] VITALS: BP 119/84
[2018-01-29 09:34] VITALS: BP 123/80
--- NOTE | 2018-01-29 09:55 | NUR ---
[facility] PT TO FLOOR FROM PACU; WAS IN SURGERY THIS AM FOR STENT REMOVAL AND HAD A SEIZURE. PT WITHOUT ANY S/S OF SEIZURE ACTIVITY AT THIS TIME.
--- NOTE | 2018-01-29 10:10 | NUR ---
[facility] PT HAS BEEN ACCEPTED AT [facility] IN [place] FOR TRANSFER. [facility] CALL[facility] AT THIS TIME.
--- NOTE | 2018-01-29 10:25 | NUR ---
[facility] TO TRANSPORT PT TO [facility]. PRESENT, PT CONTINUES TO BE WITHOUT ANY S/S OF SEIZURE ACTIVITY.
--- NOTE | 2018-01-30 02:05 | HPH ---
ADMIT DATE: 01/29/2018 ADDENDUM The patient has just had a recent cystoscopy with removal of right ureteral stent with ureteroscopy. While she was in the recovery room, the patient had another episode of seizure disorder, so the discharge was canceled and Dr. Gimenez was then consulted, our hospitalist crew mess attendant, for her to be admitted in ICU for further evaluation and management. Blair Carter MD DR: [email or web address]/olga JOB# [id number]
--- NOTE | 2018-02-06 09:22 | OPH ---
DATE OF SURGERY: 01/29/2018 PREOPERATIVE DIAGNOSIS: Indwelling right ureteral stent, status post right ESWL. FINAL DIAGNOSIS: Indwelling right ureteral stent, status post right ESWL. PROCEDURES: Cystoscopy, removal of right ureteral stent with right ureteroscopy. DESCRIPTION OF PROCEDURE: The patient was brought to the cystoscopy room and put in supine position on the cystoscopy table. After the patient was given a satisfactory and adequate general anesthesia, the patient was placed in the lithotomy position. The genitalia was then prepped and draped aseptically in the usual manner. First, a 22-[place] cystoscope was inserted per urethra up to the bladder. With the use of the right angle lens, the bladder was visualized. There was a presence of stent in the right orifice, which was removed and replaced with a Glidewire. After that, a 7-[place] semirigid ureteroscope was inserted to the bladder to the right ureteral orifice all the way to the upper ureter and there was no evidence of residual stone noted. After that, the ureteroscope was removed and the cystoscope was reinserted and the bladder was emptied with fluid and the guidewire was also removed and the procedure was then terminated. The patient was then awakened, was transferred to the recovery room in stable condition. Blair Carter MD DR: [email or web address]/olga JOB# [id number]
== END 2018-01-29 10:40 | disposition short-term general hospital (02) ==
LOC: SURG 07:03 → INTOOBSV 10:05 → MS 10:05
PROVIDERS: ADMIT Urology; ATTEND Urology
DX: N20.0 Calculus of kidney (principal); R56.9 Unspecified convulsions; Z96.0 Presence of urogenital implants; Z98.890 Other specified postprocedural states; I10 Essential (primary) hypertension; E66.9 Obesity, unspecified; F17.210 Nicotine dependence, cigarettes, uncomplicated
CPT/HCPCS: 52310; 76000; G0378; J1100; J1885; J1956 ×2; J2001; J2060; J2250; J2405; J3010; J3490; J7030 ×2; J7120 ×2; C1769; J1940